=== PATIENT | male | born 1985 | race African-American/Black ===

== ENCOUNTER 2017-09-03 13:24 | Emergency (ER) | payer MEDICAID ==
[~2017-09-03] VITALS: Ht 175.3 cm; Wt 149.7 kg
[2017-09-03 14:30] LABS: HEMATOCRIT 49.5 % (42.0-52.0); HEMOGLOBIN 15.3 G/DL (14.2-18.0); MEAN CORPUSCULAR VOLUME 75 FL (80-99); PLATELET COUNT 223 K/UL (150-450); RED BLOOD COUNT 6.58 M/UL (4.70-6.10); RED CELL DISTRIBUTION WIDTH 13.2 % (11.6-14.8); WHITE BLOOD COUNT 14.4 K/UL (4.8-10.8)
[2017-09-03 14:40] VITALS: BP 137/71
[2017-09-03 14:40] LABS: APPEARANCE,URINE CLEAR; BILIRUBIN, URINE NEGATIVE (NEGATIVE); COLOR,URINE YELLOW; GLUCOSE, URINE (UA) NEGATIVE (NEGATIVE); KETONES,URINE NEGATIVE (NEGATIVE); LEUKOCYTE ESTERASE ,URINE 1+ (NEGATIVE); NITRITE,URINE NEGATIVE (NEGATIVE); PH,URINE 6 (4.5-8.0); PROTEIN,URINE 1+ (NEGATIVE); UROBILINOGEN,URINE NORMAL MG/DL (0.0-1.0)
[2017-09-03 14:42] LABS: ANION GAP 6 mmol/L (5-15); BLOOD UREA NITROGEN 14 mg/dL (7-18); CARBON DIOXIDE 28 MMOL/L (21-32); CHLORIDE 103 MMOL/L (98-107); CREATININE 0.9 MG/DL (0.55-1.30); POTASSIUM 4.1 MMOL/L (3.5-5.1); SODIUM 137 MMOL/L (136-145)
[2017-09-03 14:45] LABS: ALANINE AMINOTRANSFERASE 31 U/L (12-78); ALBUMIN/GLOBULIN RATIO 0.9 (1.0-2.7); ALKALINE PHOSPHATASE 67 U/L (46-116); ASPARTATE AMINO TRANSFERASE 33 U/L (15-37); BILIRUBIN,TOTAL 0.5 MG/DL (0.2-1.0)
--- NOTE | 2017-09-03 16:11 | Emergency Room Report ---
History of Present Illness General Chief Complaint: Vomiting Source: Patient Present Illness HPI 31-year-old male presents ED for evaluation. Patient planning of abdominal pain which started this morning. Pain is epigastric, 8 out of 10, dull, nonradiating. Notes nausea and vomiting. Denies fevers or chills. Denies chest pain or shortness of breath. Denies any diarrhea. No other aggravating or relieving factors. Denies any other associated symptoms Allergies: Coded Allergies: PEACH (Verified Allergy, Unknown, 09/03/17) Patient History Past Medical History: none Past Surgical History: none Pertinent Family History: none Social History: Denies: smoking, alcohol use, drug use Immunizations: UTD Reviewed Nursing Documentation: PMH: Agreed; PSxH: Agreed Nursing Documentation-PMH Past Medical History: No Stated History Review of Systems All Other Systems: negative except mentioned in HPI Physical Exam Vital Signs Date Time Temp Pulse Resp B/P (MAP) Pulse Ox O2 Delivery O2 Flow Rate FiO2 09/03/17 13:32 98.2 79 20 129/82 98 Room Air 98.2 Sp02 EP Interpretation: reviewed, normal General Appearance: no apparent distress, alert, GCS 15, non-toxic, obese Head: normocephalic, atraumatic Eyes: bilateral eye normal inspection, bilateral eye PERRL ENT: hearing grossly normal, normal pharynx, no angioedema, normal voice Neck: full range of motion, supple/symm/no masses Respiratory: chest non-tender, lungs clear, normal breath sounds, speaking full sentences Cardiovascular #1: regular rate, rhythm, no edema Cardiovascular #2: 2+ carotid (R), 2+ carotid (L), 2+ radial (R), 2+ radial (L) , 2+ dorsalis pedis (R), 2+ dorsalis pedis (L) Gastrointestinal: normal bowel sounds, soft, non-distended, no guarding, no rebound, tenderness - epigastric Rectal: deferred Genitourinary: normal inspection, no CVA tenderness Musculoskeletal: back normal, gait/station normal, normal range of motion, non- tender Neurologic: alert, oriented x3, responsive, motor strength/tone normal, sensory intact, speech normal Psychiatric: judgement/insight normal, memory normal, mood/affect normal, no suicidal/homicidal ideation Reflexes: 3+ bicep (R), 3+ bicep (L), 3+ tricep (R), 3+ tricep (L), 3+ knee (R) , 3+ knee (L) Skin: normal color, no rash, warm/dry, well hydrated Lymphatic: no adenopathy Medical Decision Making Diagnostic Impression: Primary Impression: Pancreatitis Qualified Codes: K85.90 - Acute pancreatitis without necrosis or infection, unspecified ER Course Hospital Course 31-year-old male presents to ED with abdominal pain Differential diagnoses include: BPH, cystitis, pyelonephritis, kidney stone Clinical course Patient placed on stretcher. nurse monitoring. After initial history and physical I ordered labs, IV fluids, UA, pain medication and CT scan Labs - noted leukocytosis, Hb/Hct stable. electrolytes ok. Lipase > 1100, CT abdomen and pelvis - no acute pathology identified discussed findings with patient and family. Patient will require admission for IV hydration. Because of insurance patient will be transferred I feel this is a highly complex case requiring extensive working including EKG/ Rhythm strip, Xray/CT/US, Blood/urine lab work, repeat exams while in ED, and administration of strong opiates/narcotics for pain control, admission to hospital or close patient follow up. Diagnosis - acute pancreatitis transferred in serious condition Labs Test 09/03/17 14:23 White Blood Count 14.4 K/UL (4.8-10.8) Red Blood Count 6.58 M/UL (4.70-6.10) Hemoglobin 15.3 G/DL (14.2-18.0) Hematocrit 49.5 % (42.0-52.0) Mean Corpuscular Volume 75 FL (80-99) Mean Corpuscular Hemoglobin 23.3 PG (27.0-31.0) Mean Corpuscular Hemoglobin Concent 30.9 G/DL (32.0-36.0) Red Cell Distribution Width 13.2 % (11.6-14.8) Platelet Count 223 K/UL (150-450) Mean Platelet Volume 8.3 FL (6.5-10.1) Neutrophils (%) (Auto) % (45.0-75.0) Lymphocytes (%) (Auto) % (20.0-45.0) Monocytes (%) (Auto) % (1.0-10.0) Eosinophils (%) (Auto) % (0.0-3.0) Basophils (%) (Auto) % (0.0-2.0) Differential Total Cells Counted 100 Neutrophils % (Manual) 86 % (45-75) Lymphocytes % (Manual) 6 % (20-45) Monocytes % (Manual) 8 % (1-10) Eosinophils % (Manual) 0 % (0-3) Basophils % (Manual) 0 % (0-2) Band Neutrophils 0 % (0-8) Platelet Estimate Adequate Platelet Morphology Normal Red Blood Cell Morphology Hypochromasia 1+ Urine Color Yellow Urine Appearance Clear Urine pH 6 (4.5-8.0) Urine Specific [place] 1.025 (1.005-1.035) Urine Protein 1+ (NEGATIVE) Urine Glucose (UA) Negative (NEGATIVE) Urine Ketones Negative (NEGATIVE) Urine Occult Blood 2+ (NEGATIVE) Urine Nitrite Negative (NEGATIVE) Urine Bilirubin Negative (NEGATIVE) Urine Urobilinogen Normal MG/DL (0.0-1.0) Urine Leukocyte Esterase 1+ (NEGATIVE) Urine RBC 2-4 /HPF (0 - 0) Urine WBC 0-2 /HPF (0 - 0) Urine Squamous Epithelial Cells Occasional /LPF Urine Amorphous Sediment Few /LPF (NONE) Urine Bacteria Occasional /HPF (NONE) Urine Mucus Few /LPF (NONE/OCC) Sodium Level 137 MMOL/L (136-145) Potassium Level 4.1 MMOL/L (3.5-5.1) Chloride Level 103 MMOL/L (98-107) Carbon Dioxide Level 28 MMOL/L (21-32) Anion Gap 6 mmol/L (5-15) Blood Urea Nitrogen 14 mg/dL (7-18) Creatinine 0.9 MG/DL (0.55-1.30) Estimat Glomerular Filtration Rate > 60 mL/min (>60) Glucose Level 102 MG/DL (74-106) Calcium Level 9.0 MG/DL (8.5-10.1) Total Bilirubin 0.5 MG/DL (0.2-1.0) Aspartate Amino Transf (AST/SGOT) 33 U/L (15-37) Alanine Aminotransferase (ALT/SGPT) 31 U/L (12-78) Alkaline Phosphatase 67 U/L (46-116) Total Protein 8.4 G/DL (6.4-8.2) Albumin 4.0 G/DL (3.4-5.0) Globulin 4.4 g/dL Albumin/Globulin Ratio 0.9 (1.0-2.7) Lipase 1180 U/L (73-393) CT/MRI/US Diagnostic Results CT/MRI/US Diagnostic Results : Imaging Test Ordered: CT A/P Impression no acute process Last Vital Signs Date Time Temp Pulse Resp B/P (MAP) Pulse Ox O2 Delivery O2 Flow Rate FiO2 09/03/17 14:40 98.2 69 18 137/71 100 Room Air 98.2 Status: improved Disposition: ER [facility] Condition: Serious Referrals: [facility],REFERRING (PCP) Ventura Dwyer MD Sep 03, 2017 16:11
[2017-09-03 16:16] VITALS: BP 128/75
[2017-09-03] MEDS ORDERED: Morphine Sulfate 4mg/ml Inj IVP ONE (17:15)
[2017-09-03] MEDS ORDERED: Ketorolac 30mg Inj IV ONE (17:15)
[2017-09-03 18:05] VITALS: BP 114/63
[2017-09-03 18:43] VITALS: BP 114/63
--- NOTE | 2017-09-03 18:44 | Diagnostic Imaging Report ---
Indication: Dominant pain Technique: CT of the abdomen and pelvis utilizing automated exposure control with intravenous contrast. Venous scanning performed. CT dose: Total DLP 1692.62 mGycm; CTDI vol 21.91,19.27 mGy Comparison: None Findings: Limited evaluation due to large body habitus resulting in photon starvation and increased image noise. Within these limitations: There is dependent atelectasis in the lung bases. Heart size is within normal limits. There is no pericardial effusion. Liver contour appears smooth. No focal hepatic mass lesion is appreciated. Gallbladder appearance. Spleen, adrenal glands and pancreas grossly unremarkable. Kidneys appear symmetric in size. Renal enhancement is symmetric. No evidence of hydronephrosis bilaterally. Bladder and prostate are unremarkable in appearance. No evidence of free intraperitoneal air. No evidence of bowel obstruction or appreciable inflammatory change in the mesentery. Appendix is normal. No pathologically enlarged lymphadenopathy. Abdominal aorta is normal in caliber. No acute osseous abnormality is appreciated. A small fat-containing left inguinal hernia. IMPRESSION: Limited exam as above. No definite evidence of acute intra-abdominal pathology. No evidence of bowel obstruction. Appendix is normal. The CT scanner at [facility] is accredited by the [employer] and the scans are performed using protocols designed to limit radiation exposure to as low as reasonably achievable to attain images of sufficient resolution adequate for diagnostic evaluation.
== END 2017-09-03 18:47 | disposition short-term general hospital (02) ==
LOC: EMR 14:05
DX: K85.90 Acute pancreatitis without necrosis or infection, unspecified (principal)
CPT/HCPCS: 36415; 74177; 80053; 81003; 83690; 85007; 85025; 96374; 96375; 99285; J1885; J2270; J2405; Q9967; S0028

== ENCOUNTER 2019-11-20 12:26 | Emergency (ER) | payer MEDICAID ==
[~2019-11-20] VITALS: Ht 175.3 cm; Wt 150.1 kg
[2019-11-20 12:44] VITALS: BP 131/84
--- NOTE | 2019-11-20 12:45 | NUR ---
ED Nurse Note: Patient walked in to ER from home due to flu like symptoms, stated dizziness, lost smell x 1 week, nose bleed this morning. Denyed fever, N/V/D. Patient presented calm, O2 sat 96% on RA, even non-labored respiration
[2019-11-20 13:00] VITALS: BP 135/88
--- NOTE | 2019-11-20 13:10 | Emergency Room Report ---
History of Present Illness General Chief Complaint: Flu Like Symptoms Source: Patient Present Illness HPI 34-year-old male with no significant past medical history here complaining of 1 week of loss of smell and taste. Complains of minor congestion however denies cough, shortness of breath, abdominal pain, diarrhea, nausea vomiting, fever and chills. 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 Has not taken medication for symptom relief. Oxygenation within normal limits. Patient is afebrile. Denies any tobacco smoke, and alcohol intake however smokes marijuana occasionally. Complains of low appetite. Denies all other comorbidities. Resting comfortably with stable vital signs. Speaking in full sentences, does not use any accessory muscles for breathing. Allergies: Coded Allergies: PEACH (Verified Allergy, Unknown, 09/03/17) COVID-19 Screening Contact w/high risk pt: No Recent Travel to affected area: No Experienced COVID-19 symptoms?: Yes COVID-19 symptoms experienced: Flu-Like Symptoms COVID-19 Testing performed HSE SPECIALIST: No Patient History Past Surgical History: none Pertinent Family History: none Immunizations: UTD Reviewed Nursing Documentation: PMH: Agreed; PSxH: Agreed Nursing Documentation-PMH Past Medical History: No Stated History Review of Systems All Other Systems: negative except mentioned in HPI Physical Exam Vital Signs Date Time Temp Pulse Resp B/P (MAP) Pulse Ox O2 Delivery O2 Flow Rate FiO2 11/20/19 12:38 97.7 70 18 131/84 (100) 96 Room Air Sp02 EP Interpretation: reviewed, normal General Appearance: no apparent distress, alert, GCS 15, non-toxic Head: normocephalic, atraumatic Eyes: bilateral eye normal inspection, bilateral eye PERRL ENT: hearing grossly normal, normal pharynx, no angioedema, normal voice Neck: full range of motion, supple/symm/no masses Respiratory: chest non-tender, lungs clear, normal breath sounds, speaking full sentences Cardiovascular #1: regular rate, rhythm, no edema, no murmur Gastrointestinal: normal bowel sounds, non tender, soft, non-distended, no guarding, no rebound Genitourinary: no CVA tenderness Neurologic: alert, oriented Psychiatric: judgement/insight normal, memory normal, mood/affect normal, no suicidal/homicidal ideation Skin: no rash Lymphatic: no adenopathy Medical Decision Making PA Attestation All my diagnosis and treatment plans were reviewed ad discussed with my supervising physician Dr. Haas Diagnostic Impression: Primary Impression: Suspected 2019 novel coronavirus infection ER Course 34-year-old male with no significant past medical history here complaining of 1 week of loss of smell and taste. Complains of minor congestion however denies cough, shortness of breath, abdominal pain, diarrhea, nausea vomiting, fever and chills. 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 Has not taken medication for symptom relief. Oxygenation within normal limits. Patient is afebrile. Denies any tobacco smoke, and alcohol intake however smokes marijuana occasionally. Complains of low appetite. Denies all other comorbidities. Resting comfortably with stable vital signs. Speaking in full sentences, does not use any accessory muscles for breathing. Ddx considered but are not limited to: Coronavirus, strep pharyngitis, URI, tonsillitis, peritonsillar abscess, influneza Vital signs: are WNL, pt. is afebrile H&PE are most consistent with: Suspected COVID-19 ORDERS: Claritin-D, albuterol ED INTERVENTIONS: None required at this time. DISCHARGE: At this time pt. is stable for d/c to home. Will provide printed patient care instructions, and any necessary prescriptions. Care plan and follow up instructions have been discussed with the patient prior to discharge. Gave information to across the [address] to [address] for patient to go get tested , patient was advised for 14 days. Patient take medication as directed, if worsening symptom, respiratory distress difficulty breathing return to the emergency room Chest X-Ray Diagnostic Results Chest X-Ray Diagnostic Results : Chest X-Ray Ordered: Yes # of Views/Limited/Complete: 1 View Indication: Other EP Interpretation: Yes MARLA Xray: Interpretation reviewed, by supervising MD, and agrees with findings. Interpretation: no consolidation, no effusion, no pneumothorax Impression: No acute disease Electronically Signed by: Watson Griggs PA-C Last Vital Signs Date Time Temp Pulse Resp B/P (MAP) Pulse Ox O2 Delivery O2 Flow Rate FiO2 11/20/19 12:44 70 18 Room Air 11/20/19 12:44 97.7 131/84 96 Disposition: HOME, SELF-CARE Condition: Stable Scripts Loratadine/Pseudoephedrine (CLARITIN-D 12 HOUR TABLET) 1 Each Tab.er.12h 1 TAB ORAL EVERY 12 HOURS, #20 TAB Prov: Watson Mckinley 11/20/19 Albuterol Sulfate (VENTOLIN HFA) 18 Gm Hfa.aer.ad 2 PUFFS INH EVERY 6 HOURS, #18 GM 0 Refills Prov: Watson Mckinley 11/20/19 Patient Instructions: Upper Respiratory Infection, Adult, [id number] Additional Instructions: Take medication as directed, follow-up with your primary care provider, self isolate for 14 days, if worsening symptom return to the emergency room Watson Mckinley Nov 20, 2019 13:10
[2019-11-20] MEDS ORDERED: CLARITIN-D 121 EAC1 ORAL (13:11)
[2019-11-20] MEDS ORDERED: VENTOLIN HFA18 GM INH (13:11)
--- NOTE | 2019-11-20 13:23 | NUR ---
ER DISCHARGE NOTE: Patient is cleared to be discharged per ERMD, pt is aox4, on room air, with stable vital signs. pt was given dc and prescription instructions, pt was able to verbalize understanding, pt id band removed. pt is able to ambulate with steady gait. pt took all belongings.
--- NOTE | 2019-11-20 17:29 | Diagnostic Imaging Report ---
Indication: Shortness of breath Technique: One view of the chest Comparison: none Findings: Lungs and pleural spaces are clear. Heart size is normal. Impression: No acute process
== END 2019-11-20 13:22 | disposition home or self-care (01) ==
LOC: EMR 12:45
DX: R09.81 Nasal congestion (principal); R06.02 Shortness of breath
CPT/HCPCS: 71045; Z7502; 99283